=== PATIENT | female | born 1970 | race Two or more races ===

== ENCOUNTER 2024-05-21 11:46 | Inpatient (IN) | payer MEDICAID, SELFPAY ==
[2024-05-21] VITALS (14 sets, daily range): BP systolic 100–139; BP diastolic 55–79; PULSE 99–123; RESP 18–97; TEMP 36.4–37.6; O2SAT 94–98; BMI 29.2
--- NOTE | 2024-05-21 11:48 | EKG_ITS ---
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
--- NOTE | 2024-05-21 11:48 | XR_ITS ---
Examination: AP chest single view Technique one AP portable upright chest single view Exam date and time: May 21, 2024 1254 hours INDICATIONS: Shortness of breath dyspnea vomiting nausea today, diabetes history FINDINGS: Poor inspiratory effort Mild prominence of ventricle No pneumonia or pulmonary edema IMPRESSION: Poor inspiratory effort chest x-ray
--- NOTE | 2024-05-21 11:53 | PD.EDADULT ---
ED General RME/HPI General Chief complaint: Shortness of Breath/Dyspnea Stated complaint: POSS DKA Time Seen by Provider: 05/21/24 11:47 Arrival date/time: 05/21/24 11:46 CC: Nausea vomiting chills and a high blood sugar HPI patient presents the ER via EMS report tachycardia tachypnea and a high blood sugar. Patient has a history of diabetes last known DKA was in 2021. Patient is actively vomiting at the time of the initial exam. Patient denies chest pain but is complaining of shortness of breath. Related Data Home Medications ?Medication ?Instructions ?Recorded ?Confirmed atorvastatin 10 mg tablet 10 mg PO QDAY 05/04/19 05/04/19 ferrous sulfate 325 mg (65 mg 325 mg PO HS 05/04/19 05/04/19 iron) tablet (iron) metformin 1,000 mg tablet 1,000 mg PO BID 05/04/19 05/04/19 Previous Rx's ?Medication ?Instructions ?Recorded insulin glargine 100 unit/mL (3 30 unit (0.3 mL) subcut HS #3 mL 08/16/21 mL) subcutaneous pen (Lantus Solostar U-100 Insulin) Allergies Allergy/AdvReac Type Severity Reaction Status Date / Time No Known Allergies Allergy Verified 06/03/22 17:33 Review of Systems Review of Systems Narrative Review of Systems: GEN: No fever, no chills, no weight loss EYES: No discharge, no visual changes, no pain HEENT: No ear pain, no congestion, no sore throat PULM: No shortness of breath, no cough, no congestion CV: No chest pain, no dyspnea on exertion, no palpitations GI: + nausea, +vomiting, no diarrhea, no pain, no constipation : No frequency, no urgency, no dysuria MUSC/SKEL: No joint pain, no back pain SKIN: No rash PSYCH: No hallucinations, no depression HEME/LYMPH: No easy bleeding or bruising tendencies NEURO: No weakness, no headache Past Medical History Past Medical History NEUROLOGIC: Negative Neurological Disorders CARDIAC: Positive Hypercholesterolemia and Hypertension; Negative Cardiac Disorders or Congestive Heart Failure RESPIRATORY: Negative Chronic Obstructive Pulmonary Disease (COPD) or Asthma GASTROINTESTINAL: Negative Gastrointestinal Disorders GENITOURINARY: Negative Genitourinary Disorders or Renal Disease REPRODUCTIVE: Positive Previous Pregnancies; Negative Pelvic Inflammatory Disease MUSCULOSKELETAL: Negative Musculoskeletal Disorders ENDOCRINE: Positive Endocrine Disorders and Diabetes Mellitus Type 2; Negative Diabetes Mellitus Type 1 HEMATOLOGIC: Positive Blood Disorders and Anemia; Negative Sickle Cell Disease OTHER HISTORY: Positive Falls; Negative Hospitalization, Autoimmune Disease, Down Syndrome, Developmental Delay, Blood Transfusions, Blood Transfusion Reaction, Anesthesia Reactions, Chicken Pox, Measles, Mumps, Clostridium Difficile or Cancer Family History FAMILY HISTORY: Negative Family Psychiatric Problems, Family Respiratory Disorders, Family Cardiac Disorders, Family Gastrointestinal Problems, Family Cancer, Family Surgery or Family Anesthesia Reaction Surgical History SURGICAL: Negative Ear Surgery or Joint Replacement Social History SMOKING STATUS: Never smoker SECOND HAND EXPOSURE: No SUBSTANCE USE: does not use ED Exam Narrative Physical exam: [General: Obese, in moderate discomfort not in any acute distress, active vomiting Head normocephalic HEENT: Within acceptable limits Neck is supple nontender Chest equal chest rise nontender to palpation Respiratory: Clear to auscultation no wheezes crackles or rubs CV: Rate rhythm is regular no murmurs rubs or clicks Abdomen is distended secondary to body habitus soft nontender no masses positive bowel sounds all 4 quadrants Back: No CVA tenderness no spinous process tenderness from cervical spine thoracic and lumbar spine Skin: Intact no petechiae rash induration ulceration or crepitus Extremities: Moving all extremity against resistance cap refill less than 2 seconds neurosensory intact Neuro: Awake alert oriented x2, person and place, Glascow coma 15 no focal deficits] Course Orders Category Date Time Status EKG (ED ONLY) *Do not use* NOW Care 05/21/24 11:48 Completed Saline [Insert IV] NOW Care 05/21/24 11:48 Active EKG (ED Only) Stat Exams 05/21/24 11:48 Draft XR chest 1V Stat Exams 05/21/24 11:48 Ordered ABG [Arterial Blood Gas] Stat Lab 05/21/24 12:04 Completed B-Type Natriuretic Peptide Stat Lab 05/21/24 11:55 Completed Beta Hydroxybutyrate Stat Lab 05/21/24 11:55 Completed CBC Stat Lab 05/21/24 11:55 Completed Comprehensive Metabolic Panel Stat Lab 05/21/24 11:55 Completed Drug Screen,Urine Stat Lab 05/21/24 11:48 Ordered LDH (Lactate Dehydrogenase) Stat Lab 05/21/24 11:55 Completed Lipase Stat Lab 05/21/24 12:41 Ordered Magnesium Stat Lab 05/21/24 11:55 Completed Partial Thromboplastin Time Stat Lab 05/21/24 11:55 Completed Prothrombin Time with INR Stat Lab 05/21/24 11:55 Completed Troponin I Stat Lab 05/21/24 11:55 Completed Troponin I Stat Lab 05/21/24 12:41 Ordered Urinalysis Stat Lab 05/21/24 11:48 Ordered Insulin Reg 100 Units/100 ml [Myxredlin] Med 05/21/24 12:36 Active 100 unit in 100 ml IV 0.1 unit/kg/hr Sodium Chloride 0.9% 1000 ml [Ns] 1,000 ml Med 05/21/24 11:50 Active IV 999 mls/hr Sodium Chloride 0.9% 1000 ml [Ns] 1,000 ml Med 05/21/24 11:50 Active IV 999 mls/hr Vital Signs Vital signs: Vital Signs Temperature 98.3 F 05/21/24 11:52 Pulse Rate 123 H 05/21/24 11:52 Respiratory Rate 18 05/21/24 11:52 Blood Pressure 139/74 H 05/21/24 11:52 Pulse Oximetry (%) 97 05/21/24 11:52 Oxygen Delivery Method Room Air 05/21/24 11:52 [facility] Patient data External records reviewed:: [facility] previous records and EMS form Clinical information provided by:: patient and EMS Social determinants that could affect healthcare access:: none Patient has the following chronic illnesses:: Diabetes hyperlipidemia hypertension How is presenting disease/condition affected by chronic disease/condition?: exacerbated by Evaluation data The following diagnostics were reviewed and interpreted by me:: lab results, radiology exam(s) and EKG tracing(s) Lab and/or radiology exams considered but not ordered:: EKG performed at 1240 shows a ventricular rate of 119 DC interval 180 QRS of 9 4 QTc of 396 is sinus tachycardia. CBC shows a leukocytosis of 14.7 no anemia no thrombocytopenia CMP shows a sodium of 129 no pseudohyponatremia potassium of 5.6 chloride of 94 CO2 is less than 10 gap of 25 BUN of 33 creatinine 1.5 glucose of 658. No T. bili elevation magnesium of 2.2. Alk phos 122 LDH 251 Troponin is negative BNP is negative. ABG shows a pH of 7.12 pCO2 of 29 pO2 of 94 bicarb of 9 base deficit of 19 Beta hydroxybutyrate of 4.9 Interpretation Summary: This patient is in DKA, talked patient's case discussed with Dr. Cary, who agrees to accept the patient for admission. Medications Medications considered but not ordered:: None Medication administrations:: Medication Administration History Sodium Chloride (Ns) 1,000 mls @ 999 mls/hr IV .Q1H1M ONE Stop: 05/21/24 12:50 Last Admin: 05/21/24 12:46 Dose: 999 mls/hr Documented By: OLMAN Sodium Chloride (Ns) 1,000 mls @ 999 mls/hr IV .Q1H1M ONE Stop: 05/21/24 12:50 Last Admin: 05/21/24 12:46 Dose: 999 mls/hr Documented By: OLMAN Insulin Human Regular (Myxredlin) 100 unit in 100 mls @ 7.258 mls/hr IV .[id number] PRN; Protocol PRN Reason: PER PROTOCOL Stop: 06/20/24 12:35 None Consultations Consultation(s) initiated? (list below): No Diagnosis Differential Diagnosis ED Complaint MDM: DKA hyperglycemia nausea vomiting dehydration Most likely diagnosis given after review of the tests above:: DKA Admission Indicated Explain why admission is indicated or not indicated:: Requires further medical management Admission Request Was there a request for admission?: No Disposition Plan Disposition Plan: Admit Medical Decision Making Differential Diagnosis Differential Diagnosis: DKA hyperglycemia nausea vomiting dehydration Lab Data 05/21/24 11:55 05/21/24 11:55 Labs: Lab Results 05/21/24 05/21/24 Range/Units 11:55 12:04 WBC 14.7 H (3.6-11.0) Thou/mm3 RBC 4.66 (4.00-5.20) Miln/mm3 Hgb 12.9 (12.0-16.0) g/dL Hct 40.3 (36.0-46.0) % MCV 87 (80-100) fL MCH 27.7 (25.0-35.0) pg MCHC 32.0 (31.0-37.0) g/dl RDW Std Deviation 40.3 (36.4-46.3) fL Plt Count 311 (140-440) Thou/mm3 Neut % (Auto) 94 H (37-80) % Lymph % (Auto) 5 L (10-50) % [place] % (Auto) 1 (0-12) % Eos % (Auto) 0 (0-10) % Baso % (Auto) 0 (0-2.5) % Neut # (Auto) 13.8 H (1.8-7.7) Thou/mm3 Lymph # (Auto) 0.7 L (1.0-4.8) Thou/mm3 [place] # (Auto) 0.1 (0.0-0.8) Thou/mm3 Eos # (Auto) 0.0 (0.0-0.5) Thou/mm3 Baso # (Auto) 0.0 (0.0-0.2) Thou/mm3 Immature Gran # (Auto) 0.09 H (0.00-0.00) Thou/mm3 Absolute Nucleated RBC 0.00 (0.00-0.00) Thou/mm3 Immature Gran % 1 H (0-0) % Nucleated RBC % 0 (0) /100 WBC PT 11.1 (9.0-12.2) Seconds INR 1.0 (0.9-1.3) APTT 26.5 (22.0-36.0) Seconds Puncture Site Right Radial ABG pH 7.12 L* (7.35-7.45) ABG pCO2 29 L (32.0-48.0) mmHg ABG pO2 94 (83-108) mmHg ABG HCO3 9 L* (20-26) mEq/L ABG O2 Saturation 96 (91-98) % ABG Base Excess -19 L (-3-3) FiO2 21 % Sodium 129 L (136-145) mMol/L Potassium 5.6 H (3.4-5.1) mMol/L Chloride 94 L (98-107) mMol/L Carbon Dioxide < 10.0 L* (20.0-31.0) mMol/L Anion Gap 25 H (7-16) BUN 33 H (9-23) mg/dL Creatinine 1.5 H (0.6-1.3) mg/dL Estim Creat Clear Calc 41.4 L (>60) mL/min eGFR 42 L (60 - ) See Note BUN/Creatinine Ratio 22 H (12-20) Ratio Glucose 658 H* (74-106) mg/dL Calculated Osmolality 297 H (275-295) Calcium 10.0 (8.3-10.6) mg/dL Corrected Calcium 10.0 (8.5-10.1) mg/dL Magnesium 2.2 (1.6-2.6) mg/dL Total Bilirubin 0.5 (0.3-1.2) mg/dL AST 13 (0-34) U/L ALT 23 (10-49) U/L Alkaline Phosphatase 122 H (46-116) U/L Lactate Dehydrogenase 251 H (120-246) U/L Troponin I < 0.020 (0.0-0.045) ng/mL B-Natriuretic Peptide 97 (0-100) pg/mL Total Protein 7.5 (5.7-8.2) gm/dL Albumin 4.6 (3.5-5.0) gm/dL Globulin 2.9 (2.3-3.5) gm/dL Albumin/Globulin Ratio 1.6 (1.2-2.2) Beta-Hydroxybutyrate/Acetoacetate 4.9 H (<0.6) mmol/L Discharge Plan Plan Patient Disposition: Admit Acute Care w/in Hospital Patient condition on transfer: Stable Prescriptions/Referrals Prescriptions/Med Rec: No Action atorvastatin 10 mg Tablet 10 mg PO QDAY ferrous sulfate [iron] 325 mg (65 mg iron) Tablet 325 mg PO HS metformin 1,000 mg Tablet 1,000 mg PO BID Lantus Solostar U-100 Insulin 100 unit/mL (3 mL) Insulin Pen 30 unit SUBCUT HS Qty: 3 0RF Problem List Clinical Impression: DKA (diabetic ketoacidoses) Patient/Caregiver Discharge Instructions Print Language: English Stand Alone Forms: Michelle Award Info., Patient Portal Info Letter CHDAD/MINDI Supervising Physician CHADD/MINDI Supervising Physician: Edilberto Lin ENP
[2024-05-21 12:08] LABS: Base Excess -19 (-3-3); HCO3 9 mEq/L (20-26); Inspired Oxygen, FIO2 21 %; O2 Saturation 96 % (91-98); PCO2 29 mmHg (32.0-48.0); PO2 94 mmHg (83-108)
[2024-05-21 12:10] LABS: Beta Hydroxybutyrate 4.9 mmol/L (<0.6)
[2024-05-21 12:12] LABS: Allen Test Not Performed; Puncture Site Right Radial
[2024-05-21 12:14] LABS: Basophils % (Auto) 0 % (0-2.5); Eosinophils % (Auto) 0 % (0-10); Hematocrit 40.3 % (36.0-46.0); Hemoglobin 12.9 g/dL (12.0-16.0); Immature Granulocytes % (Auto) 1 % (0-0); Immature Granulocytes Auto 0.09 Thou/mm3 (0.00-0.00); Lymphocytes # (Auto) 0.7 Thou/mm3 (1.0-4.8); Lymphocytes % (Auto) 5 % (10-50); Mean Corpuscular Hemoglobin 27.7 pg (25.0-35.0); Mean Corpuscular Volume 87 fL (80-100); Monocytes # (Auto) 0.1 Thou/mm3 (0.0-0.8); Monocytes % (Auto) 1 % (0-12); Neutrophils # (Auto) 13.8 Thou/mm3 (1.8-7.7); Neutrophils % (Auto) 94 % (37-80); Nucleated Red Blood Cell % 0 /100 WBC (0); Platelet Count 311 Thou/mm3 (140-440); RDW Standard Deviation 40.3 fL (36.4-46.3); Red Blood Count 4.66 Miln/mm3 (4.00-5.20); White Blood Count 14.7 Thou/mm3 (3.6-11.0)
[2024-05-21 12:15] LABS: pH, Arterial 7.12 (7.35-7.45)
[2024-05-21 12:25] LABS: Partial Thromboplastin Time 26.5 Seconds (22.0-36.0); Prothrombin Time 11.1 Seconds (9.0-12.2)
[2024-05-21 12:36] LABS: Alanine Aminotransferase 23 U/L (10-49); Albumin, Serum 4.6 gm/dL (3.5-5.0); Albumin/Globulin Ratio 1.6 (1.2-2.2); Alkaline Phosphatase 122 U/L (46-116); Anion Gap 25 (7-16); Aspartate Amino Transferase 13 U/L (0-34); BUN/Creatinine Ratio 22 Ratio (12-20); Bilirubin,Total 0.5 mg/dL (0.3-1.2); Blood Urea Nitrogen 33 mg/dL (9-23); Chloride 94 mMol/L (98-107); Creatinine (Component) 1.5 mg/dL (0.6-1.3); Estimated Creatinine Clearance 41.4 mL/min (>60); Globulin 2.9 gm/dL (2.3-3.5); LDH (Lactate Dehydrogenase) 251 U/L (120-246); Magnesium 2.2 mg/dL (1.6-2.6); Osmolality,Calculated 297 (275-295); Potassium 5.6 mMol/L (3.4-5.1); Sodium 129 mMol/L (136-145); Total Protein 7.5 gm/dL (5.7-8.2); Troponin I < 0.020 ng/mL (0.0-0.045); eGFR 42 See Note
[2024-05-21 12:37] LABS: Carbon Dioxide < 10.0 mMol/L (20.0-31.0); Glucose 658 mg/dL (74-106)
[2024-05-21 12:45] LABS: B-Type Natriuretic Peptide 97 pg/mL (0-100)
[2024-05-21] MEDS: SODIUM CHLORIDE 0.9% 1000 ML 1,000 ML 999 ML IV ×2 (12:46)
[2024-05-21] MEDS: INSULIN REG 100 UNITS/100 ML 100 UNIT/100 ML BAG 7.258 UNIT IV (13:09)
[2024-05-21 13:26] LABS: Lipase 20 U/L (12-53); Troponin I < 0.020 ng/mL (0.0-0.045)
--- NOTE | 2024-05-21 13:37 | ESHP_ITS ---
<Statement entered by Enma Cary MD - 05/22/24 08:02> TOTAL CC TIME: 45 MIN I saw and evaluated the patient. I reviewed the resident?s note and agree with findings and plan as documented in the resident?s note. Upon my evaluation, this patient had a high probability of imminent or life- threatening deterioration due to DKA, AMADA which required my direct attention, intervention, and personal management. This time is exclusive of time spent on procedures, which are documented separately if performed. severe DKA no indication for hco3 pushes aggressive IVFs / insulin gtt replace E-lytes appropriately AMADA pre-renal Documentation for date of: 05/21/24 HPI History of Present Illness History of present illness: Tamiko Simms is a 53-year-old female with a past medical history of insulin- dependent type 2 diabetes mellitus on insulin pump and CGM, hyperlipidemia, and hypertension who presented to the ED on 05/21 with shortness of breath, nausea, vomiting, abdominal pain, and urinary frequency. Denies chest pain, dysuria, hematuria, fever, cough, diarrhea. Daughter at bedside who helped translate and provide additional history and states that CGM was reading high for the last couple of days and that states that pump was functioning. Daughter states that recent labs done outpatient showed A1c ~7%. Of note, most recent episode of DKA was in November 2023 and was admitted at [facility] and has since been on CGM and insulin pump. In ED, vitals showed BP 139/74, HR 123, temp 98.3 ?F, RR, O2 97% on RA 18. Labs significant for WBC 14.7, ABG: pH 7.12, pCO2 29, pO2 94, blood glucose 658 (fingerstick 999), beta hydroxybutyrate 4.9, A1c 7.4%, lactic acid 3.6, sodium 129, potassium 5.6, chloride 94, bicarb less than 10, AG 25, BUN 33, creatinine 1.5. EKG showed sinus tachycardia without significant ST changes. Admitted to ICU for management of DKA/HHS. PMHx: Insulin-dependent type 2 diabetes mellitus, hyperlipidemia, hypertension Medications: Gabapentin 300 mg twice daily, metformin 1 g twice daily, lisinopril 30 mg daily, Lipitor 20 mg at bedtime SHx: Denies alcohol, cigarette, illicit drug use PSHx: No previous surgeries per daughter Review of Systems Review of Systems Systems Reviewed: All systems reviewed, normal except as documented Exam Vital Signs Temp Pulse Resp BP Pulse Ox O2 Del Method 98.3 F 123 H 18 139/74 H 97 Room Air 05/21/24 11:52 05/21/24 11:52 05/21/24 11:52 05/21/24 11:52 05/21/24 11:52 05/21/24 11:52 Narrative Exam General: AOx3, in mild distress, able to speak full sentences HEENT: NC/AT, mucous membranes moist, bilateral sclera anicteric Cardiovascular: tachyardic, regular rhythm, S1/S2 present, no murmurs appreciated Pulmonary: clear to auscultation bilaterally, no rales/rhonchi/wheezes Abdominal: diffusely tender to soft palpation, soft, non-distended, no rebound/guarding Musculoskeletal: normal ROM, no peripheral edema Skin: warm and dry, intact, no rashes Neuro: CN II-XII intact, no focal deficits Results: Labs 05/21/24 11:55 05/21/24 21:03 Labs: Short CBC 05/21/24 Range/Units 11:55 WBC 14.7 H (3.6-11.0) Thou/mm3 Hgb 12.9 (12.0-16.0) g/dL Hct 40.3 (36.0-46.0) % Plt Count 311 (140-440) Thou/mm3 BMP 05/21/24 11:55 Sodium 129 L Potassium 5.6 H Chloride 94 L Carbon Dioxide < 10.0 L* BUN 33 H Creatinine 1.5 H Glucose 658 H* Calcium 10.0 Cardiac Enzymes 05/21/24 05/21/24 Range/Units 11:55 13:00 Troponin I < 0.020 < 0.020 (0.0-0.045) ng/mL Liver Function 05/21/24 Range/Units 11:55 Total Bilirubin 0.5 (0.3-1.2) mg/dL AST 13 (0-34) U/L ALT 23 (10-49) U/L Alkaline Phosphatase 122 H (46-116) U/L Albumin 4.6 (3.5-5.0) gm/dL ABG Interpretation ABG results: 05/21/24 12:04 ABG pH 7.12 L* ABG pCO2 29 L ABG pO2 94 ABG HCO3 9 L* ABG O2 Saturation 96 ABG Base Excess -19 L Quality Measures Quality Measures VTE prophylaxis Medications Home Medications and Allergies Home Medications ?Medication ?Instructions ?Recorded ?Confirmed ?Type atorvastatin 10 mg tablet 10 mg PO QDAY 05/04/1905/21 History ferrous sulfate 325 mg (65 mg 325 mg PO HS 05/04/19 History iron) tablet (iron) metformin 1,000 mg tablet 1,000 mg PO BID 05/04/19 History gabapentin 300 mg capsule 300 mg PO BID 05/21/2405/21 History insulin pump cart,auto,BT,G6/7 05/21/24 05/21/24 Hist ory (Omnipod 5 G6-G7 Pods (Gen 5) subcutaneous cartridge) Allergies Allergy/AdvReac Type Severity Reaction Status Date / Time No Known Allergies Allergy Verified 06/03/22 17:33 Visit Medications Acetaminophen (Acetaminophen 325 Mg Tablet) 650 mg PO Q4HR PRN PRN Reason: Pain 1-3 and Fever Stop: 06/20/24 13:24 Al Hydrox/Mg Hydrox/Simethicone (Mg Hyd/Al Hyd/Herberht (Maalox Reg) Susp 30 Ml Udc) 30 ml PO Q4HR PRN PRN Reason: Heartburn or Upset Stomach Stop: 06/20/24 13:24 Heparin Sodium (Porcine) (Heparin Sod Inj 5000 Unit/Ml Vial) 5,000 unit SC Q12HR [facility] Stop: 06/04/24 20:59 Insulin Human Regular (Myxredlin) 100 unit in 100 mls @ 7.258 mls/hr IV .[id number] PRN; Protocol PRN Reason: PER PROTOCOL Stop: 06/20/24 12:35 Last Admin: 05/21/24 13:09 Dose: 0.1 unit/kg/hr, 7.258 mls/hr Potassium Chloride (Kcl Ivpb) 10 meq in 100 mls @ 100 mls/hr IV .Q1H PRN PRN Reason: IF POTASSIUM LESS THAN 3.3 Stop: 06/20/24 13:29 Magnesium Sulfate (Magnesium Sulfate Ivpb) 2 gm in 50 mls @ 25 mls/hr IV .Q2H PRN PRN Reason: PER DKA PROTOCOL Stop: 06/20/24 13:29 Dextrose/Lactated Ringer's (D5-Lr) 1,000 mls @ 250 mls/hr IV .Q4H PRN PRN Reason: PER PROTOCOL Stop: 06/20/24 13:29 Lactated Ringer's (Lactated Ringers) 1,000 mls @ 250 mls/hr IV .Q4H PRN PRN Reason: PER PROTOCOL Stop: 05/22/24 13:29 Potassium Chloride 20 meq/ (Lactated Ringer's) 1,010 mls @ 250 mls/hr IV .Q4H3M PRN PRN Reason: K LEVEL 3.3 TO 5.3mM/L Stop: 06/20/24 13:29 Potassium Chloride 40 meq/ (Lactated Ringer's) 1,020 mls @ 250 mls/hr IV .Q4H5M PRN PRN Reason: K LEVEL < 3.3 mM/L Stop: 06/20/24 13:29 Potassium Chloride 40 meq/ (Dextrose/Lactated Ringer's) 1,020 mls @ 250 mls/hr IV .Q4H5M PRN PRN Reason: K LEVEL < 3.3mM/L Stop: 06/20/24 13:29 Potassium Cl/Dextrose/Lact Ringer's (Kcl 20 Meq/L In D5-Lr) 20 meq in 1,000 mls @ 250 mls/hr IV .Q4H PRN PRN Reason: K LEVEL 3.3 TO 5.3 mM/L Stop: 06/20/24 13:29 Potassium Chloride (Kcl Ivpb) 10 meq in 100 mls @ 50 mls/hr IV PRN PRN PRN Reason: K LEVEL 3.3 to 5.3 & BG > 200 Stop: 06/20/24 13:29 Magnesium Hydroxide (Milk Of Magnesia Susp 30 Ml Udc) 30 ml PO QDAY PRN PRN Reason: CONSTIPATION Stop: 06/20/24 13:24 Nitroglycerin (Nitroglycerin 0.4 Mg Subl Btl #25) 0.4 mg SL Q5MIN PRN PRN Reason: CHEST PAIN Pantoprazole Sodium (Pantoprazole Inj 40 Mg Vial) 40 mg IVP QDAY OBEY Stop: 06/20/24 13:29 Sodium Bicarbonate (Sodium Bicarb Inj 8.4% Syr 50 Ml Syringe) 50 ml IV PRN PRN PRN Reason: For ph <= to 7.0 Stop: 06/20/24 13:29 Discontinued Medications Sodium Chloride (Ns) 1,000 mls @ 999 mls/hr IV .Q1H1M ONE Stop: 05/21/24 12:50 Last Admin: 05/21/24 12:46 Dose: 999 mls/hr Sodium Chloride (Ns) 1,000 mls @ 999 mls/hr IV .Q1H1M ONE Stop: 05/21/24 12:50 Last Admin: 05/21/24 12:46 Dose: 999 mls/hr Ondansetron HCl (Ondansetron Inj 2 Mg/Ml Inj 2 Ml) 4 mg IV X1 ONE; Protocol Stop: 05/21/24 13:12 Assessment & Plan Plan Tmaiko Simms is a 53-year-old female with a past medical history of insulin- dependent type 2 diabetes mellitus on insulin pump and CGM, hyperlipidemia, and hypertension who is admitted on 05/21 to ICU for management of DKA/HHS. Neurological No acute/active disease Cardiovascular #Hyperlipidemia ? Home atorvastatin 10 mg p.o. daily Pulmonary No acute/active disease Gastrointestinal No acute/active disease Renal #Anion gap metabolic acidosis, secondary to DKA and lactic acidosis, improving Iniital labs showed ABG pH 7.12, pCO2 29, pO2 94, HCO3 < 10, anion gap 25, beta hydroxybutyrate 4.9, lactate 3.6. Alvares formula: expected pCO2 21-25, thus concomitant respiratory acidosis. Delta-delta: 13/14 = 0.92, suggesting pure AGMA Most recent ABG pH 7.39, pCO2 34, and pO2 92, HCO3 21, anion gap 10, lactate 1.5. ? See endocrine below #Pseudohyponatremia, resolved Measured sodium 129, corrected for hyperglycemia -> 143 #Hyperkalemia, resolved Potassium 5.6 bu resolved t likely total body potassium low given urinary frequency and RAAS activation in setting of low intravascular volume ? Insulin and IVF #Acute kidney injury, likely prerenal BUN/creatinine ratio greater than 22, suggesting prerenal AMADA in setting of urinary frequency ? IVF Heme/onc #Leukocytosis, likey reactive in setting of DKA Endocine #Diabetic ketoacidosis #Type 2 diabetes mellitus, insulin-dependent on CGM and insulin pump Presented with abdominal pain, nausea, vomiting, and urinary frequency in setting of DKA. A1c 7.4%, initial fingerstick of 999 and beta hydroxybutyrate of 4.9. Transition to subcutaneous insulin after anion gap closes with 1 to 2-hour overlap with insulin drip. Transition to D5-LR if blood sugar drops below 200. ? Continue insulin drip and maintain blood sugar 150-200 until resolution of DKA ? IVF, lactated ringer at 250 cc/h ? Monitor electrolytes and replete as needed Infectious disease No acute/active disease Hospital management: Disposition: ICU for management of DKA Drips: insulin per DKA protocol Fluids: LR Diet: NPO Lines: peripheral DVT prophylaxis: heparin SC BID GI prophylaxis: pantoprazole IV Kiran: not placed CODE STATUS: full code ----- Plan discussed with attending physician Dr. Luis Daniel Duke MD PGY-1 Internal Medicine
[2024-05-21 14:18] LABS: Lactate (Lactic Acid) 3.6 mMol/L (0.4-2.0)
[2024-05-21 14:21] LABS: Allen Test Not Performed; Base Excess -21 (-3-3); HCO3 8 mEq/L (20-26); Inspired Oxygen, FIO2 21 %; O2 Saturation 95 % (91-98); PCO2 25 mmHg (32.0-48.0); PO2 92 mmHg (83-108); Puncture Site Left Radial
[2024-05-21 14:23] LABS: pH, Arterial 7.09 (7.35-7.45)
[2024-05-21] MEDS: PANTOPRAZOLE INJ 40 MG VIAL IVP (14:25)
[2024-05-21 14:30] LABS: Glucose Estimated Average 166 mg/dL (80-131); Hemoglobin A1C 7.4 % Hgb (4.8-6.0)
--- NOTE | 2024-05-21 14:38 | PC.NURSE ---
SPOKE WITH DR. SANTAMARIA VIA TELEPHONE REGARDING PATIENT'S PAIN LEVEL OF 10/10, DR. SANTAMARIA STATES HE WILL PLACE MEDICATION ORDER.
[2024-05-21] MEDS: LIDOCAINE 5% 1 PATCH TOP (15:10)
[2024-05-21] MEDS: RINGERS LACTATED 1000 ML 1,000 ML 250 ML IV (15:13)
[2024-05-21] MEDS: ONDANSETRON INJ 2 MG/ML INJ 2 ML 4 MG IV (15:15)
[2024-05-21 16:22] LABS: Lactate (Lactic Acid) 2.8 mMol/L (0.4-2.0)
[2024-05-21 16:43] LABS: Base Excess -15 (-3-3); HCO3 12 mEq/L (20-26); Inspired Oxygen, FIO2 21 %; O2 Saturation 96 % (91-98); PCO2 29 mmHg (32.0-48.0); PO2 80 mmHg (83-108); pH, Arterial 7.22 (7.35-7.45)
[2024-05-21 16:48] LABS: Allen Test Not Performed; Puncture Site Right Radial
[2024-05-21 16:50] LABS: Albumin, Serum 3.9 gm/dL (3.5-5.0); Anion Gap 21 (7-16); BUN/Creatinine Ratio 28 Ratio (12-20); Blood Urea Nitrogen 36 mg/dL (9-23); Calcium 8.8 mg/dL (8.3-10.6); Calcium (Corrected) 8.9 mg/dL (8.5-10.1); Chloride 103 mMol/L (98-107); Creatinine (Component) 1.3 mg/dL (0.6-1.3); Estimated Creatinine Clearance 47.8 mL/min (>60); Magnesium 1.8 mg/dL (1.6-2.6); Osmolality,Calculated 299 (275-295); Phosphorous 4.4 mg/dL (2.4-5.1); Potassium 4.5 mMol/L (3.4-5.1); Sodium 136 mMol/L (136-145); eGFR 50 See Note
[2024-05-21 16:51] LABS: Carbon Dioxide 11.8 mMol/L (20.0-31.0)
[2024-05-21 16:52] LABS: Glucose 449 mg/dL (74-106)
[2024-05-21 17:17] LABS: Reflex Lactate? Y
[2024-05-21 19:04] LABS: Collection Type, Urine Clean Catch; Squamous Epithelial Cell,Urine 0 /hpf (0-5)
[2024-05-21 19:17] LABS: Reflex Lactate? Y
[2024-05-21] MEDS: POT CHL ADDITIVE 20 MEQ in RINGERS LACTATED 1000 ML 1,000 ML 250 MEQ IV (19:24)
[2024-05-21 19:31] LABS: Bilirubin,Urine Negative (Negative); Blood,Urine 3+ (Negative); Budding Yeast,Urine Present; Color,Urine Red (Lt Yel-Yel); Glucose, Urine Negative (Negative); Ketones,Urine 1+ (Negative); Leukocyte Esterase,Urine Positive (Negative); Nitrite,Urine Negative (Negative); Protein,Urine 2+ (Neg - Trace); RBC,Urine 7092 /hpf (0-3); Specific Gravity,Urine 1.014 (1.001-1.035); Urobilinogen,Urine Negative mg/dL (0.0-1.0); WBC,Urine 863 /hpf (0-5)
[2024-05-21 19:34] LABS: Clarity,Urine Turbid (Clear/Hazy)
[2024-05-21 19:42] LABS: Amphetamine/Methamp Scrn,U Negative (Negative); Barbiturate Screen,Urine Negative (Negative); Benzodiazepines Screen,Urine Negative (Negative); Benzoylecgonine Screen, Ur Negative (Negative); Fentanyl Screen,Urine Negative (Negative); Opiate Screen,Urine Negative (Negative); THC Screen,Urine Negative (Negative)
[2024-05-21] MEDS: KCL 20 mEq/L in D5-LR 20 MEQ/1,000 ML BAG 250 MEQ IV (21:08)
[2024-05-21] MEDS: HEPARIN SOD INJ 5000 UNIT/ML VIAL SC (21:09)
[2024-05-21 21:19] LABS: Lactate (Lactic Acid) 1.5 mMol/L (0.4-2.0)
[2024-05-21 21:23] LABS: Base Excess -4 (-3-3); HCO3 21 mEq/L (20-26); Inspired Oxygen, FIO2 21 %; O2 Saturation 99 % (91-98); PCO2 34 mmHg (32.0-48.0); PO2 92 mmHg (83-108); pH, Arterial 7.39 (7.35-7.45)
[2024-05-21 21:24] LABS: Allen Test Performed/OK; Puncture Site Right Radial
[2024-05-21 21:44] LABS: Albumin, Serum 4.1 gm/dL (3.5-5.0); Anion Gap 10 (7-16); BUN/Creatinine Ratio 31 Ratio (12-20); Blood Urea Nitrogen 37 mg/dL (9-23); Calcium 9.5 mg/dL (8.3-10.6); Calcium (Corrected) 9.5 mg/dL (8.5-10.1); Carbon Dioxide 21.8 mMol/L (20.0-31.0); Chloride 110 mMol/L (98-107); Creatinine (Component) 1.2 mg/dL (0.6-1.3); Estimated Creatinine Clearance 51.7 mL/min (>60); Glucose 188 mg/dL (74-106); Magnesium 1.8 mg/dL (1.6-2.6); Osmolality,Calculated 296 (275-295); Phosphorous 2.9 mg/dL (2.4-5.1); Potassium 4.8 mMol/L (3.4-5.1); Sodium 142 mMol/L (136-145); eGFR 55 See Note
[2024-05-22] VITALS (14 sets, daily range): BP systolic 97–144; BP diastolic 57–88; PULSE 83–103; RESP 1–97; TEMP 36.1–37.2; O2SAT 94–97; BMI 13.0; BMI 34.2
[2024-05-22 00:32] LABS: Base Excess -2 (-3-3); HCO3 23 mEq/L (20-26); Inspired O2, VO2 Liters 4 L/min; Inspired Oxygen, FIO2 21 %; O2 Saturation 96 % (91-98); PCO2 38 mmHg (32.0-48.0); PO2 70 mmHg (83-108); pH, Arterial 7.39 (7.35-7.45)
[2024-05-22 00:43] LABS: Allen Test Performed/OK; Puncture Site Right Radial
[2024-05-22 01:14] LABS: Lactate (Lactic Acid) 1.5 mMol/L (0.4-2.0)
[2024-05-22 01:35] LABS: Albumin, Serum 3.8 gm/dL (3.5-5.0); Anion Gap 8 (7-16); BUN/Creatinine Ratio 33 Ratio (12-20); Blood Urea Nitrogen 36 mg/dL (9-23); Calcium 9.1 mg/dL (8.3-10.6); Calcium (Corrected) 9.3 mg/dL (8.5-10.1); Carbon Dioxide 23.4 mMol/L (20.0-31.0); Chloride 112 mMol/L (98-107); Creatinine (Component) 1.1 mg/dL (0.6-1.3); Estimated Creatinine Clearance 56.4 mL/min (>60); Glucose 164 mg/dL (74-106); Magnesium 1.7 mg/dL (1.6-2.6); Osmolality,Calculated 297 (275-295); Phosphorous 2.4 mg/dL (2.4-5.1); Potassium 4.5 mMol/L (3.4-5.1); Sodium 143 mMol/L (136-145); eGFR > 60 See Note
[2024-05-22] MEDS: KCL 20 mEq/L in D5-LR 20 MEQ/1,000 ML BAG 250 MEQ IV (02:58)
[2024-05-22] MEDS: INSULIN GLARGINE (Lantus) 5 UNIT/0.05 ML (PER 5 UNITS) 20 UNIT SC ×2 (03:03→21:28)
--- NOTE | 2024-05-22 04:45 | PD.RESPRO ---
Documentation for date of: 05/22/24 Subjective Subjective Interval history: Patient seen and examined in ICU. Patient was admitted to hospital on 05/21/2024 for DKA, anion gap closed twice at about 3 AM earlier this morning. Patient was transitioned to subcutaneous insulin, received Lantus 20 units. Will be started on sliding scale insulin, will initiate p.o. feeding this a.m. Patient denies any nausea/vomiting or abdominal pain currently. Reports has been difficulty ambulating since the last 6 years, pending PT consult. Exam Vital Signs Temp Pulse Resp BP Pulse Ox O2 Del Method 99.0 F 92 25 H 97/57 L 97 Room Air 05/22/24 01:00 05/22/24 02:00 05/22/24 02:00 05/22/24 02:00 05/22/24 02:00 05/21/24 15:50 Narrative Exam Physical Exam General: Awake and in no acute distress. Conversational and non-toxic appearing. HEENT: Normocephalic, atraumatic, mucous membranes moist. Reports blurry vision, vision grossly intact. Heart: Regular rate and rhythm, no murmurs. Lungs: Clear to auscultation with no wheezing or crackles. Abdomen: Soft, nondistended, nontender, positive bowel sounds. ?No guarding or rebound tenderness. Neurologic: Alert and oriented x3, no gross neurological deficit, and patient able to move all 4 extremities. Extremities: No edema. Skin: No rash or ecchymoses. Objective Labs 05/21/24 11:55 05/22/24 01:04 Labs: Laboratory Results - last 24 hr 05/21/24 05/21/24 05/21/24 11:55 12:04 13:00 WBC 14.7 H RBC 4.66 Hgb 12.9 Hct 40.3 MCV 87 MCH 27.7 MCHC 32.0 RDW Std Deviation 40.3 Plt Count 311 Neut % (Auto) 94 H Lymph % (Auto) 5 L [place] % (Auto) 1 Eos % (Auto) 0 Baso % (Auto) 0 Neut # (Auto) 13.8 H Lymph # (Auto) 0.7 L [place] # (Auto) 0.1 Eos # (Auto) 0.0 Baso # (Auto) 0.0 Immature Gran # (Auto) 0.09 H Absolute Nucleated RBC 0.00 Immature Gran % 1 H Nucleated RBC % 0 PT 11.1 INR 1.0 APTT 26.5 Puncture Site Right Radial ABG pH 7.12 L* ABG pCO2 29 L ABG pO2 94 ABG HCO3 9 L* ABG O2 Saturation 96 ABG Base Excess -19 L Oxygen Liter Flow FiO2 21 Sodium 129 L Potassium 5.6 H Chloride 94 L Carbon Dioxide < 10.0 L* Anion Gap 25 H BUN 33 H Creatinine 1.5 H Estim Creat Clear Calc 41.4 L eGFR 42 L BUN/Creatinine Ratio 22 H Glucose 658 H* Estimated Ave Glu mg/dL Hemoglobin A1c Calculated Osmolality 297 H Lactic Acid Calcium 10.0 Corrected Calcium 10.0 Phosphorus Magnesium 2.2 Total Bilirubin 0.5 AST 13 ALT 23 Alkaline Phosphatase 122 H Lactate Dehydrogenase 251 H Troponin I < 0.020 < 0.020 B-Natriuretic Peptide 97 Total Protein 7.5 Albumin 4.6 Globulin 2.9 Albumin/Globulin Ratio 1.6 Lipase 20 Beta-Hydroxybutyrate/Acetoacetate 4.9 H Ur Collection Type Urine Color Urine Clarity Urine pH Ur Specific [place] Urine Protein Urine Glucose (UA) Urine Ketones Urine Blood Urine Nitrite Urine Bilirubin Urine Urobilinogen (Auto) Ur Leukocyte Esterase Urine RBC Urine WBC Ur Squamous Epith Cells Urine Bacteria Urine Yeast (Budding) Urine Opiates Screen Urine Fentanyl Screen Ur Barbiturates Screen U Amphetamin/Meth Scrn U Benzodiazepines Scrn U Cocaine Metab Screen U Marijuana (THC) Screen 05/21/24 05/21/24 05/21/24 14:12 14:14 16:12 WBC RBC Hgb Hct MCV MCH MCHC RDW Std Deviation Plt Count Neut % (Auto) Lymph % (Auto) [place] % (Auto) Eos % (Auto) Baso % (Auto) Neut # (Auto) Lymph # (Auto) [place] # (Auto) Eos # (Auto) Baso # (Auto) Immature Gran # (Auto) Absolute Nucleated RBC Immature Gran % Nucleated RBC % PT INR APTT Puncture Site Left Radial ABG pH 7.09 L* ABG pCO2 25 L ABG pO2 92 ABG HCO3 8 L* ABG O2 Saturation 95 ABG Base Excess -21 L Oxygen Liter Flow FiO2 21 Sodium 136 Potassium 4.5 D Chloride 103 Carbon Dioxide 11.8 L* Anion Gap 21 H BUN 36 H Creatinine 1.3 Estim Creat Clear Calc 47.8 L eGFR 50 L BUN/Creatinine Ratio 28 H Glucose 449 H* D Estimated Ave Glu mg/dL 166 H Hemoglobin A1c 7.4 H Calculated Osmolality 299 H Lactic Acid 3.6 H 2.8 H Calcium 8.8 Corrected Calcium 8.9 Phosphorus 4.4 Magnesium 1.8 Total Bilirubin AST ALT Alkaline Phosphatase Lactate Dehydrogenase Troponin I B-Natriuretic Peptide Total Protein Albumin 3.9 D Globulin Albumin/Globulin Ratio Lipase Beta-Hydroxybutyrate/Acetoacetate Ur Collection Type Urine Color Urine Clarity Urine pH Ur Specific [place] Urine Protein Urine Glucose (UA) Urine Ketones Urine Blood Urine Nitrite Urine Bilirubin Urine Urobilinogen (Auto) Ur Leukocyte Esterase Urine RBC Urine WBC Ur Squamous Epith Cells Urine Bacteria Urine Yeast (Budding) Urine Opiates Screen Urine Fentanyl Screen Ur Barbiturates Screen U Amphetamin/Meth Scrn U Benzodiazepines Scrn U Cocaine Metab Screen U Marijuana (THC) Screen 05/21/24 05/21/24 05/21/24 16:21 18:51 21:03 WBC RBC Hgb Hct MCV MCH MCHC RDW Std Deviation Plt Count Neut % (Auto) Lymph % (Auto) [place] % (Auto) Eos % (Auto) Baso % (Auto) Neut # (Auto) Lymph # (Auto) [place] # (Auto) Eos # (Auto) Baso # (Auto) Immature Gran # (Auto) Absolute Nucleated RBC Immature Gran % Nucleated RBC % PT INR APTT Puncture Site Right Radial ABG pH 7.22 L D ABG pCO2 29 L ABG pO2 80 L ABG HCO3 12 L ABG O2 Saturation 96 ABG Base Excess -15 L Oxygen Liter Flow FiO2 21 Sodium 142 Potassium 4.8 Chloride 110 H Carbon Dioxide 21.8 Anion Gap 10 BUN 37 H Creatinine 1.2 Estim Creat Clear Calc 51.7 L eGFR 55 L BUN/Creatinine Ratio 31 H Glucose [address] Glu mg/dL Hemoglobin A1c Calculated Osmolality 296 H Lactic Acid 1.5 Calcium 9.5 Corrected Calcium 9.5 Phosphorus 2.9 Magnesium 1.8 Total Bilirubin AST ALT Alkaline Phosphatase Lactate Dehydrogenase Troponin I B-Natriuretic Peptide Total Protein Albumin 4.1 Globulin Albumin/Globulin Ratio Lipase Beta-Hydroxybutyrate/Acetoacetate Ur Collection Type Clean Catch Urine Color Red A Urine Clarity Turbid A Urine pH 6.0 Ur Specific [place] 1.014 Urine Protein 2+ A Urine Glucose (UA) Negative Urine Ketones 1+ A Urine Blood 3+ A Urine Nitrite Negative Urine Bilirubin Negative Urine Urobilinogen (Auto) Negative Ur Leukocyte Esterase Positive Urine RBC 7092 H Urine WBC 863 H Ur Squamous Epith Cells 0 Urine Bacteria None Urine Yeast (Budding) Present A Urine Opiates Screen Negative Urine Fentanyl Screen Negative Ur Barbiturates Screen Negative U Amphetamin/Meth Scrn Negative U Benzodiazepines Scrn Negative U Cocaine Metab Screen Negative U Marijuana (THC) Screen Negative 05/21/24 05/22/24 05/22/24 21:09 00:25 01:04 WBC RBC Hgb Hct MCV MCH MCHC RDW Std Deviation Plt Count Neut % (Auto) Lymph % (Auto) [place] % (Auto) Eos % (Auto) Baso % (Auto) Neut # (Auto) Lymph # (Auto) [place] # (Auto) Eos # (Auto) Baso # (Auto) Immature Gran # (Auto) Absolute Nucleated RBC Immature Gran % Nucleated RBC % PT INR APTT Puncture Site Right Radial Right Radial ABG pH 7.39 D 7.39 ABG pCO2 34 38 ABG pO2 92 70 L D ABG HCO3 21 23 ABG O2 Saturation 99 H 96 ABG Base Excess -4 L -2 Oxygen Liter Flow 4 FiO2 21 21 Sodium 143 Potassium 4.5 Chloride 112 H Carbon Dioxide 23.4 Anion Gap 8 BUN 36 H Creatinine 1.1 Estim Creat Clear Calc 56.4 L eGFR > 60 BUN/Creatinine Ratio 33 H Glucose [address] Glu mg/dL Hemoglobin A1c Calculated Osmolality 297 H Lactic Acid 1.5 Calcium 9.1 Corrected Calcium 9.3 Phosphorus 2.4 Magnesium 1.7 Total Bilirubin AST ALT Alkaline Phosphatase Lactate Dehydrogenase Troponin I B-Natriuretic Peptide Total Protein Albumin 3.8 Globulin Albumin/Globulin Ratio Lipase Beta-Hydroxybutyrate/Acetoacetate Ur Collection Type Urine Color Urine Clarity Urine pH Ur Specific [place] Urine Protein Urine Glucose (UA) Urine Ketones Urine Blood Urine Nitrite Urine Bilirubin Urine Urobilinogen (Auto) Ur Leukocyte Esterase Urine RBC Urine WBC Ur Squamous Epith Cells Urine Bacteria Urine Yeast (Budding) Urine Opiates Screen Urine Fentanyl Screen Ur Barbiturates Screen U Amphetamin/Meth Scrn U Benzodiazepines Scrn U Cocaine Metab Screen U Marijuana (THC) Screen ABG Interpretation ABG results: 05/21/24 05/21/24 05/21/24 12:04 14:12 16:21 ABG pH 7.12 L* 7.09 L* 7.22 L D ABG pCO2 29 L 25 L 29 L ABG pO2 94 92 80 L ABG HCO3 9 L* 8 L* 12 L ABG O2 Saturation 96 95 96 ABG Base Excess -19 L -21 L -15 L 05/21/24 05/22/24 21:09 00:25 ABG pH 7.39 D 7.39 ABG pCO2 34 38 ABG pO2 92 70 L D ABG HCO3 21 23 ABG O2 Saturation 99 H 96 ABG Base Excess -4 L -2 Quality Measures Quality Measures VTE prophylaxis Assessment & Plan Assessment Current Active Medications: Generic Name Dose Route Start Last Admin Trade Name Freq PRN Reason Stop Dose Admin Acetaminophen 650 mg 05/21/24 13:25 Acetaminophen 325 Mg Tablet PO 06/20/24 13:24 Q4HR PRN Pain 1-3 and Fever Atorvastatin Calcium 10 mg 05/22/24 09:00 Atorvastatin Calcium 10 Mg Tablet PO 06/21/24 08:59 QDAY OBEY Dextrose 25 ml 05/22/24 04:21 Dextrose 50%-Water Inj 50 Ml Syringe IV 06/21/24 04:20 Q15MIN PRN BG 50-70 responsive npo pt Dextrose 50 ml 05/22/24 04:21 Dextrose 50%-Water Inj 50 Ml Syringe IV 06/21/24 04:20 Q15MIN PRN BG <50 OR BG <70 & pt unresponsive Ferrous Sulfate 325 mg 05/22/24 21:00 Ferrous Sulf 325 Mg Tablet PO 06/21/24 20:59 HS OBEY Gabapentin 300 mg 05/22/24 09:00 Gabapentin 300 Mg Capsule PO 06/21/24 08:59 BID OBEY Glucagon 1 mg 05/22/24 04:21 Glucagon Inj 1 Mg Vial IM Q15MIN PRN BG <70, and no IV access Heparin Sodium (Porcine) 5,000 unit 05/21/24 21:00 05/21/24 21:09 Heparin Sod Inj 5000 Unit/Ml Vial SC 06/04/24 20:59 5,000 unit Q12HR OBEY Administration Insulin Glargine 20 unit 05/22/24 02:15 05/22/24 03:03 Insulin Glargine (Lantus) 5 Unit/0.05 Ml (Per 5 Units) SC 06/21/24 02:14 20 unit HS OBEY Administration Insulin Human Lispro 0 unit 05/22/24 07:30 Insulin Lispro (Admelog) 1 Unit/0.01 Ml Unit SC 06/21/24 07:29 AC OBEY Protocol Plan Assessment and plan: Summary: Ms. Raines is a 53-year-old female with past medical history of hypertension and hyperlipidemia who was admitted to [facility] on 05/21/2024 for diabetic ketoacidosis. Patient's daughter assisting patient with insulin pump, unable to use insulin pump correctly leading to DKA. Patient's anion gap closed twice, was transition from insulin GTT to subcutaneous insulin and downgraded to hospitalist service for further management. #Type 2 diabetes mellitus, insulin-dependent, hemoglobin A1c 7.4 #High anion gap metabolic acidosis, resolved #Diabetic ketoacidosis, resolved #Diabetic neuropathy #Diabetic retinopathy Patient was recently discharged from [facility] on insulin pump and CGM, per patient's daughter on admission patient's CGM pump has been showing high readings, patient unable to use insulin pump correctly, leading to DKA. Patient admitted to ICU for further management, started on insulin gtt., gap has closed twice, patient transition to subcutaneous insulin. Patient transitioned at the rate of 0.05 units/kg/h to 0.025 unit/kg/h, calculated daily metabolic insulin dose at about 87-43.5 units per day. Patient started on 20 units Lantus daily and sliding scale insulin. Patient will initiate p.o. intake with breakfast today. Hemoglobin A1c 7.4 Patient reports difficulty ambulating for about the last 6 years, positive history of diabetic neuropathy, on gabapentin at home. Patient reports blurry vision, did report having eye surgery for diabetes, follows ophthalmology outpatient. Plan: -Initiate p.o. intake with breakfast -Follow a.m. labs, correct and replace electrolytes as needed -Sliding scale insulin AC, fingerstick blood glucose checks AC -Lantus 20 units subcutaneous daily -Sliding scale insulin -Resumed home dose gabapentin -Physical therapy referral -Dietitian referral, diabetic education. #Acute kidney injury, resolving Patient's BUN 33, creatinine 1.5, GFR 42 on presentation. At baseline patient's BUN 13, creatinine 0.6, GFR more than 60 per chart review in 2022. Plan: -Patient was given fluids per DKA protocol, improvement in renal panel noted -Follow renal panel -Renally dose medication -Avoid nephrotoxic agents #Hyperlipidemia #Hypertension Patient on atorvastatin 10 mg p.o. daily for hyperlipidemia, resumed Patient not on any antihypertensive per med rec, monitor blood pressure #Pseudohyponatremia #Hyperkalemia, resolved Correct and replace electrolytes as needed DVT prophylaxis: Heparin every 12 hours GI prophylaxis: Not indicated Diet: Carb consistent low Lines: Peripheral IV Code status: Full code Case discussed with Attending Dr. Velazquez. Dylon Beaver PGY1 Disclaimer: This note was dictated by speech recognition. Minor errors in upper inspector may be present due to voice recognition software.
[2024-05-22 05:07] LABS: Basophils % (Auto) 0 % (0-2.5); Eosinophils % (Auto) 0 % (0-10); Hematocrit 32.3 % (36.0-46.0); Hemoglobin 10.8 g/dL (12.0-16.0); Immature Granulocytes % (Auto) 0 % (0-0); Immature Granulocytes Auto 0.07 Thou/mm3 (0.00-0.00); Lymphocytes # (Auto) 2.1 Thou/mm3 (1.0-4.8); Lymphocytes % (Auto) 12 % (10-50); Mean Corpuscular HGB Conc 33.4 g/dl (31.0-37.0); Mean Corpuscular Hemoglobin 27.7 pg (25.0-35.0); Mean Corpuscular Volume 83 fL (80-100); Monocytes # (Auto) 1.4 Thou/mm3 (0.0-0.8); Monocytes % (Auto) 9 % (0-12); Neutrophils % (Auto) 78 % (37-80); Nucleated Red Blood Cell % 0 /100 WBC (0); Platelet Count 230 Thou/mm3 (140-440); RDW Standard Deviation 39.1 fL (36.4-46.3); White Blood Count 16.6 Thou/mm3 (3.6-11.0)
[2024-05-22 05:10] LABS: Beta Hydroxybutyrate 0.2 mmol/L (<0.6)
[2024-05-22 05:22] LABS: Albumin, Serum 3.6 gm/dL (3.5-5.0); Anion Gap 9 (7-16); BUN/Creatinine Ratio 35 Ratio (12-20); Blood Urea Nitrogen 35 mg/dL (9-23); Calcium 9.1 mg/dL (8.3-10.6); Calcium (Corrected) 9.4 mg/dL (8.5-10.1); Carbon Dioxide 22.9 mMol/L (20.0-31.0); Chloride 110 mMol/L (98-107); Estimated Creatinine Clearance 62.1 mL/min (>60); Glucose 125 mg/dL (74-106); Magnesium 1.8 mg/dL (1.6-2.6); Osmolality,Calculated 292 (275-295); Phosphorous 2.6 mg/dL (2.4-5.1); Potassium 4.6 mMol/L (3.4-5.1); Sodium 142 mMol/L (136-145); eGFR > 60 See Note
[2024-05-22] MEDS: GABAPENTIN 300 MG CAPSULE PO ×2 (08:28→21:25)
[2024-05-22] MEDS: ATORVASTATIN CALCIUM 10 MG TABLET PO (08:28)
[2024-05-22] MEDS: Magnesium Sulfate 4 GM Ivpb 4 GM/50 ML BAG IV (08:30)
[2024-05-22] MEDS: HEPARIN SOD INJ 5000 UNIT/ML VIAL SC ×2 (08:30→21:26)
[2024-05-22] MEDS: INSULIN LISPRO (AdmeLOG) 1 UNIT/0.01 ML UNIT SC ×2 (11:00→17:02)
--- NOTE | 2024-05-22 11:40 | ESPR_ITS ---
<Statement entered by Jesus Mancuso MD - 05/22/24 16:36> I discussed with and supervised the biomedical engineering internship physician involved in the care of this patient. Patient assessment and plan was discussed with entire medicine team, including my attending. I agree with the assessment and plan as documented by biomedical engineering internship doctor. Patient care was discussed with my attending physician Dr. Reed Mancuso, PGY-2 Documentation for date of: 05/22/24 Subjective Subjective Interval history: 05/22/2024: Patient was overnight admission; was downgraded from the ICU for DKA after anion gap was closed several times. This morning, patient seen and examined remains mostly asymptomatic other than reporting some lower extremity pain. No concerning symptoms noted and the patient otherwise had a benign physical exam. We will calculate the patient's total insulin needs overnight and anticipate discharged with basal/bolus insulin and have her follow-up with her electronic game developer from [facility]. Exam Vital Signs Temp Pulse Resp BP Pulse Ox O2 Del Method 97.8 F 91 16 131/84 H 94 L Room Air 05/22/24 08:00 05/22/24 08:00 05/22/24 08:00 05/22/24 08:00 05/22/24 08:00 05/22/24 08:00 Narrative Exam Physical Exam General: Awake and in no acute distress. Conversational and non-toxic appearing. HEENT: Normocephalic, atraumatic, mucous membranes moist. Reports blurry vision, vision grossly intact. Heart: Regular rate and rhythm, no murmurs. Lungs: Clear to auscultation with no wheezing or crackles. Abdomen: Soft, nondistended, nontender, positive bowel sounds. ?No guarding or rebound tenderness. Neurologic: Alert and oriented x3, no gross neurological deficit, and patient able to move all 4 extremities. Extremities: No edema. Skin: No rash or ecchymoses. Objective Labs 05/23/24 04:22 05/23/24 04:22 Labs: Laboratory Results - last 24 hr 05/21/24 05/21/24 05/21/24 11:55 12:04 13:00 WBC 14.7 H RBC 4.66 Hgb 12.9 Hct 40.3 MCV 87 MCH 27.7 MCHC 32.0 RDW Std Deviation 40.3 Plt Count 311 Neut % (Auto) 94 H Lymph % (Auto) 5 L Jennings % (Auto) 1 Eos % (Auto) 0 Baso % (Auto) 0 Neut # (Auto) 13.8 H Lymph # (Auto) 0.7 L Jennings # (Auto) 0.1 Eos # (Auto) 0.0 Baso # (Auto) 0.0 Immature Gran # (Auto) 0.09 H Absolute Nucleated RBC 0.00 Immature Gran % 1 H Nucleated RBC % 0 PT 11.1 INR 1.0 APTT 26.5 Puncture Site Right Radial ABG pH 7.12 L* ABG pCO2 29 L ABG pO2 94 ABG HCO3 9 L* ABG O2 Saturation 96 ABG Base Excess -19 L Oxygen Liter Flow FiO2 21 Sodium 129 L Potassium 5.6 H Chloride 94 L Carbon Dioxide < 10.0 L* Anion Gap 25 H BUN 33 H Creatinine 1.5 H Estim Creat Clear Calc 41.4 L eGFR 42 L BUN/Creatinine Ratio 22 H Glucose 658 H* Estimated Ave Glu mg/dL Hemoglobin A1c Calculated Osmolality 297 H Lactic Acid Calcium 10.0 Corrected Calcium 10.0 Phosphorus Magnesium 2.2 Total Bilirubin 0.5 AST 13 ALT 23 Alkaline Phosphatase 122 H Lactate Dehydrogenase 251 H Troponin I < 0.020 < 0.020 B-Natriuretic Peptide 97 Total Protein 7.5 Albumin 4.6 Globulin 2.9 Albumin/Globulin Ratio 1.6 Lipase 20 Beta-Hydroxybutyrate/Acetoacetate 4.9 H Ur Collection Type Urine Color Urine Clarity Urine pH Ur Specific [place] Urine Protein Urine Glucose (UA) Urine Ketones Urine Blood Urine Nitrite Urine Bilirubin Urine Urobilinogen (Auto) Ur Leukocyte Esterase Urine RBC Urine WBC Ur Squamous Epith Cells Urine Bacteria Urine Yeast (Budding) Urine Opiates Screen Urine Fentanyl Screen Ur Barbiturates Screen U Amphetamin/Meth Scrn U Benzodiazepines Scrn U Cocaine Metab Screen U Marijuana (THC) Screen 05/21/24 05/21/24 05/21/24 14:12 14:14 16:12 WBC RBC Hgb Hct MCV MCH MCHC RDW Std Deviation Plt Count Neut % (Auto) Lymph % (Auto) Jennings % (Auto) Eos % (Auto) Baso % (Auto) Neut # (Auto) Lymph # (Auto) Jennings # (Auto) Eos # (Auto) Baso # (Auto) Immature Gran # (Auto) Absolute Nucleated RBC Immature Gran % Nucleated RBC % PT INR APTT Puncture Site Left Radial ABG pH 7.09 L* ABG pCO2 25 L ABG pO2 92 ABG HCO3 8 L* ABG O2 Saturation 95 ABG Base Excess -21 L Oxygen Liter Flow FiO2 21 Sodium 136 Potassium 4.5 D Chloride 103 Carbon Dioxide 11.8 L* Anion Gap 21 H BUN 36 H Creatinine 1.3 Estim Creat Clear Calc 47.8 L eGFR 50 L BUN/Creatinine Ratio 28 H Glucose 449 H* D Estimated Ave Glu mg/dL 166 H Hemoglobin A1c 7.4 H Calculated Osmolality 299 H Lactic Acid 3.6 H 2.8 H Calcium 8.8 Corrected Calcium 8.9 Phosphorus 4.4 Magnesium 1.8 Total Bilirubin AST ALT Alkaline Phosphatase Lactate Dehydrogenase Troponin I B-Natriuretic Peptide Total Protein Albumin 3.9 D Globulin Albumin/Globulin Ratio Lipase Beta-Hydroxybutyrate/Acetoacetate Ur Collection Type Urine Color Urine Clarity Urine pH Ur Specific [place] Urine Protein Urine Glucose (UA) Urine Ketones Urine Blood Urine Nitrite Urine Bilirubin Urine Urobilinogen (Auto) Ur Leukocyte Esterase Urine RBC Urine WBC Ur Squamous Epith Cells Urine Bacteria Urine Yeast (Budding) Urine Opiates Screen Urine Fentanyl Screen Ur Barbiturates Screen U Amphetamin/Meth Scrn U Benzodiazepines Scrn U Cocaine Metab Screen U Marijuana (THC) Screen 05/21/24 05/21/24 05/21/24 16:21 18:51 21:03 WBC RBC Hgb Hct MCV MCH MCHC RDW Std Deviation Plt Count Neut % (Auto) Lymph % (Auto) Jennings % (Auto) Eos % (Auto) Baso % (Auto) Neut # (Auto) Lymph # (Auto) Jennings # (Auto) Eos # (Auto) Baso # (Auto) Immature Gran # (Auto) Absolute Nucleated RBC Immature Gran % Nucleated RBC % PT INR APTT Puncture Site Right Radial ABG pH 7.22 L D ABG pCO2 29 L ABG pO2 80 L ABG HCO3 12 L ABG O2 Saturation 96 ABG Base Excess -15 L Oxygen Liter Flow FiO2 21 Sodium 142 Potassium 4.8 Chloride 110 H Carbon Dioxide 21.8 Anion Gap 10 BUN 37 H Creatinine 1.2 Estim Creat Clear Calc 51.7 L eGFR 55 L BUN/Creatinine Ratio 31 H Glucose [address] Glu mg/dL Hemoglobin A1c Calculated Osmolality 296 H Lactic Acid 1.5 Calcium 9.5 Corrected Calcium 9.5 Phosphorus 2.9 Magnesium 1.8 Total Bilirubin AST ALT Alkaline Phosphatase Lactate Dehydrogenase Troponin I B-Natriuretic Peptide Total Protein Albumin 4.1 Globulin Albumin/Globulin Ratio Lipase Beta-Hydroxybutyrate/Acetoacetate Ur Collection Type Clean Catch Urine Color Red A Urine Clarity Turbid A Urine pH 6.0 Ur Specific [place] 1.014 Urine Protein 2+ A Urine Glucose (UA) Negative Urine Ketones 1+ A Urine Blood 3+ A Urine Nitrite Negative Urine Bilirubin Negative Urine Urobilinogen (Auto) Negative Ur Leukocyte Esterase Positive Urine RBC 7092 H Urine WBC 863 H Ur Squamous Epith Cells 0 Urine Bacteria None Urine Yeast (Budding) Present A Urine Opiates Screen Negative Urine Fentanyl Screen Negative Ur Barbiturates Screen Negative U Amphetamin/Meth Scrn Negative U Benzodiazepines Scrn Negative U Cocaine Metab Screen Negative U Marijuana (THC) Screen Negative 05/21/24 05/22/24 05/22/24 21:09 00:25 01:04 WBC RBC Hgb Hct MCV MCH MCHC RDW Std Deviation Plt Count Neut % (Auto) Lymph % (Auto) Jennings % (Auto) Eos % (Auto) Baso % (Auto) Neut # (Auto) Lymph # (Auto) Jennings # (Auto) Eos # (Auto) Baso # (Auto) Immature Gran # (Auto) Absolute Nucleated RBC Immature Gran % Nucleated RBC % PT INR APTT Puncture Site Right Radial Right Radial ABG pH 7.39 D 7.39 ABG pCO2 34 38 ABG pO2 92 70 L D ABG HCO3 21 23 ABG O2 Saturation 99 H 96 ABG Base Excess -4 L -2 Oxygen Liter Flow 4 FiO2 21 21 Sodium 143 Potassium 4.5 Chloride 112 H Carbon Dioxide 23.4 Anion Gap 8 BUN 36 H Creatinine 1.1 Estim Creat Clear Calc 56.4 L eGFR > 60 BUN/Creatinine Ratio 33 H Glucose [address] Glu mg/dL Hemoglobin A1c Calculated Osmolality 297 H Lactic Acid 1.5 Calcium 9.1 Corrected Calcium 9.3 Phosphorus 2.4 Magnesium 1.7 Total Bilirubin AST ALT Alkaline Phosphatase Lactate Dehydrogenase Troponin I B-Natriuretic Peptide Total Protein Albumin 3.8 Globulin Albumin/Globulin Ratio Lipase Beta-Hydroxybutyrate/Acetoacetate Ur Collection Type Urine Color Urine Clarity Urine pH Ur Specific [place] Urine Protein Urine Glucose (UA) Urine Ketones Urine Blood Urine Nitrite Urine Bilirubin Urine Urobilinogen (Auto) Ur Leukocyte Esterase Urine RBC Urine WBC Ur Squamous Epith Cells Urine Bacteria Urine Yeast (Budding) Urine Opiates Screen Urine Fentanyl Screen Ur Barbiturates Screen U Amphetamin/Meth Scrn U Benzodiazepines Scrn U Cocaine Metab Screen U Marijuana (THC) Screen 05/22/24 04:26 WBC 16.6 H RBC 3.90 L Hgb 10.8 L D Hct 32.3 L MCV 83 MCH 27.7 MCHC 33.4 RDW Std Deviation 39.1 Plt Count 230 D Neut % (Auto) 78 Lymph % (Auto) 12 Jennings % (Auto) 9 Eos % (Auto) 0 Baso % (Auto) 0 Neut # (Auto) 13.0 H Lymph # (Auto) 2.1 Jennings # (Auto) 1.4 H Eos # (Auto) 0.0 Baso # (Auto) 0.0 Immature Gran # (Auto) 0.07 H Absolute Nucleated RBC 0.00 Immature Gran % 0 Nucleated RBC % 0 PT INR APTT Puncture Site ABG pH ABG pCO2 ABG pO2 ABG HCO3 ABG O2 Saturation ABG Base Excess Oxygen Liter Flow FiO2 Sodium 142 Potassium 4.6 Chloride 110 H Carbon Dioxide 22.9 Anion Gap 9 BUN 35 H Creatinine 1.0 Estim Creat Clear Calc 62.1 eGFR > 60 BUN/Creatinine Ratio 35 H Glucose [address] Glu mg/dL Hemoglobin A1c Calculated Osmolality 292 Lactic Acid Calcium 9.1 Corrected Calcium 9.4 Phosphorus 2.6 Magnesium 1.8 Total Bilirubin AST ALT Alkaline Phosphatase Lactate Dehydrogenase Troponin I B-Natriuretic Peptide Total Protein Albumin 3.6 Globulin Albumin/Globulin Ratio Lipase Beta-Hydroxybutyrate/Acetoacetate 0.2 Ur Collection Type Urine Color Urine Clarity Urine pH Ur Specific [place] Urine Protein Urine Glucose (UA) Urine Ketones Urine Blood Urine Nitrite Urine Bilirubin Urine Urobilinogen (Auto) Ur Leukocyte Esterase Urine RBC Urine WBC Ur Squamous Epith Cells Urine Bacteria Urine Yeast (Budding) Urine Opiates Screen Urine Fentanyl Screen Ur Barbiturates Screen U Amphetamin/Meth Scrn U Benzodiazepines Scrn U Cocaine Metab Screen U Marijuana (THC) Screen ABG Interpretation ABG results: 05/21/24 05/21/24 05/21/24 12:04 14:12 16:21 ABG pH 7.12 L* 7.09 L* 7.22 L D ABG pCO2 29 L 25 L 29 L ABG pO2 94 92 80 L ABG HCO3 9 L* 8 L* 12 L ABG O2 Saturation 96 95 96 ABG Base Excess -19 L -21 L -15 L 05/21/24 05/22/24 21:09 00:25 ABG pH 7.39 D 7.39 ABG pCO2 34 38 ABG pO2 92 70 L D ABG HCO3 21 23 ABG O2 Saturation 99 H 96 ABG Base Excess -4 L -2 Quality Measures Quality Measures VTE prophylaxis Assessment & Plan Assessment Current Active Medications: Generic Name Dose Route Start Last Admin Trade Name Freq PRN Reason Stop Dose Admin Acetaminophen 650 mg 05/21/24 13:25 Acetaminophen 325 Mg Tablet PO 06/20/24 13:24 Q4HR PRN Pain 1-3 and Fever Atorvastatin Calcium 10 mg 05/22/24 09:00 05/22/24 08:28 Atorvastatin Calcium 10 Mg Tablet PO 06/21/24 08:59 10 mg QDAY OBEY Administration Dextrose 25 ml 05/22/24 04:21 Dextrose 50%-Water Inj 50 Ml Syringe IV 06/21/24 04:20 Q15MIN PRN BG 50-70 responsive npo pt Dextrose 50 ml 05/22/24 04:21 Dextrose 50%-Water Inj 50 Ml Syringe IV 06/21/24 04:20 Q15MIN PRN BG <50 OR BG <70 & pt unresponsive Gabapentin 300 mg 05/22/24 09:00 05/22/24 08:28 Gabapentin 300 Mg Capsule PO 06/21/24 08:59 300 mg BID OBEY Administration Glucagon 1 mg 05/22/24 04:21 Glucagon Inj 1 Mg Vial IM Q15MIN PRN BG <70, and no IV access Heparin Sodium (Porcine) 5,000 unit 05/21/24 21:00 05/22/24 08:30 Heparin Sod Inj 5000 Unit/Ml Vial SC 06/04/24 20:59 5,000 unit Q12HR OBEY Administration Insulin Glargine 20 unit 05/22/24 02:15 05/22/24 03:03 Insulin Glargine (Lantus) 5 Unit/0.05 Ml (Per 5 Units) SC 06/21/24 02:14 20 unit HS OBEY Administration Insulin Human Lispro 0 unit 05/22/24 07:30 05/22/24 11:00 Insulin Lispro (Admelog) 1 Unit/0.01 Ml Unit SC 06/21/24 07:29 5 unit AC OBEY Administration Protocol Plan 53-year-old female with past medical history of hypertension and hyperlipidemia who was admitted to [facility] on 05/21/2024 for diabetic ketoacidosis. Patient's daughter assisting patient with insulin pump, unable to use insulin pump correctly leading to DKA. Patient's anion gap closed twice, was transition from insulin GTT to subcutaneous insulin and downgraded to hospitalist service for further management. #Type 2 diabetes mellitus, insulin-dependent, hemoglobin A1c 7.4 #High anion gap metabolic acidosis, resolved #Diabetic ketoacidosis, resolved #Diabetic neuropathy #Diabetic retinopathy Hemoglobin A1c 7.4 Patient was discharged from [facility] on insulin pump and CGM sometime in November 2023 Per patient's daughter on admission patient's CGM pump has been showing high readings, patient unable to use insulin pump correctly, leading to DKA Patient admitted to ICU for further management, started on insulin gtt, gap closed twice, patient transition to subcutaneous insulin. Patient started on 20 units Lantus daily and sliding scale insulin. Patient reports difficulty ambulating for about the last 6 years, positive history of diabetic neuropathy, on gabapentin at home. Patient reports blurry vision, did report having eye surgery for diabetes, follows ophthalmology outpatient. Plan: Will plan on discontinuing patient on basal/bolus insulin and have her follow-up with her electronic game developer Dr. Whiteside Lantus 20 units subcutaneous daily SSI - will calculate 24 hour need Continue home dose gabapentin Diabetic education #Acute kidney injury, resolving Patient's BUN 33, creatinine 1.5, GFR 42 on presentation. At baseline patient's BUN 13, creatinine 0.6, GFR more than 60 per chart review in 2022. Patient was given fluids per DKA protocol, improvement in renal panel noted Plan: Monitor with morning labs Renally dose medication Avoid nephrotoxic agents #Hyperlipidemia #Hypertension Patient on atorvastatin 10 mg p.o. daily for hyperlipidemia Patient not on any antihypertensive per med rec Plan: Monitor blood pressure; will consider starting DONALDO/ARB Resumed home atorvastatin Hospital Management: Diet: Carb consistent low Lines: PIV Bowel: Senna GI prophylaxis: Not indicated DVT prophylaxis: Heparin every 12 hours Dispo: Calculating total insulin need; will d/c with basal/bolus and refer to patient's electronic game developer. Code status: Full code Patient seen and assessed with attending Dr. Mcbride and senior resident Dr. Jamee Arzola, PGY-1 Attending Provider Attestation/Addendum I, Marisa Mcbride, DO, attest that I was physically present for the bowman portions of the service and evaluated the patient with the resident and I reviewed and discussed the case with the resident and agree with the resident's findings and plans of care as documented above Patient seen and evaluated this AM. Daughter at bedside. Patient uses an insulin pump that has been reading high the past few days. Patient has been downgraded from ICU for DKA. BG improved. Will uptitrate insulin dose as needed. Start with glargine [address] Patient sees Dr. Whiteside in [place]. Daughter suspects that the pump has not been working well, but changes it every 3 days. Anticipate DC in AM if BG better controlled, will send patient home with basal and bolus insulin doses as backup on discharge if insulin pump is malfunctioning.
--- NOTE | 2024-05-22 13:14 | PC.NURSE ---
Dr. Mancuso made aware that pt. has no voided, so RN did a bladder scan and scan shows retention of 685 cc. orders insert mercado catheter. No other orders received at this time.
--- NOTE | 2024-05-22 15:58 | PC.SS ---
SS met with patient regarding her d/c plan.? Pt is alert/oriented.? Pt was admitted for DKA.? Pt confirmed demographic and contact information is correct on facesheet.? Pt resides with and kids.? Pt ambulates using a 4 wheel with seat, rollator walker.? Pt is ok with all ADLs.? Pt named her dtr, Bharati Moy medical decision maker if she is unable.? Patient?s choice is to return home upon d/c.? Pt states she is diabetic, has glucometer, and test strips.? Pt states she takes oral medication and insulin injections for her diabetes.? SS received call from MAMIE Serrano who explained she is recommending pt follow up with Out Patient PT.? SS has informed pt and she is agreeable.? SS has provided pt with [facility] with Out Patient PT's information.? Pt states she last followed up with PCP in January,. D/C plan:? Return home Next of Kin:? Mau Moy, dtr, phone# [phone] PCP:? [facility] in [place] Address:? Correct on facesheet
[2024-05-23] VITALS (11 sets, daily range): BP systolic 110–171; BP diastolic 72–103; PULSE 82–97; RESP 15–97; TEMP 36.1–36.3; O2SAT 94–97; BMI 34.0
[2024-05-23 05:32] LABS: Basophils % (Auto) 0 % (0-2.5); Eosinophils # (Auto) 0.1 Thou/mm3 (0.0-0.5); Eosinophils % (Auto) 2 % (0-10); Hemoglobin 11.2 g/dL (12.0-16.0); Immature Granulocytes % (Auto) 0 % (0-0); Immature Granulocytes Auto 0.02 Thou/mm3 (0.00-0.00); Lymphocytes # (Auto) 2.3 Thou/mm3 (1.0-4.8); Lymphocytes % (Auto) 25 % (10-50); Mean Corpuscular HGB Conc 33.9 g/dl (31.0-37.0); Mean Corpuscular Hemoglobin 27.9 pg (25.0-35.0); Mean Corpuscular Volume 82 fL (80-100); Monocytes # (Auto) 0.6 Thou/mm3 (0.0-0.8); Monocytes % (Auto) 7 % (0-12); Neutrophils # (Auto) 6.2 Thou/mm3 (1.8-7.7); Neutrophils % (Auto) 67 % (37-80); Nucleated Red Blood Cell % 0 /100 WBC (0); Platelet Count 178 Thou/mm3 (140-440); RDW Standard Deviation 39.4 fL (36.4-46.3); Red Blood Count 4.01 Miln/mm3 (4.00-5.20); White Blood Count 9.3 Thou/mm3 (3.6-11.0)
[2024-05-23 06:43] LABS: Albumin, Serum 3.7 gm/dL (3.5-5.0); Anion Gap 9 (7-16); BUN/Creatinine Ratio 22 Ratio (12-20); Blood Urea Nitrogen 20 mg/dL (9-23); Calcium 9.4 mg/dL (8.3-10.6); Calcium (Corrected) 9.6 mg/dL (8.5-10.1); Chloride 101 mMol/L (98-107); Creatinine (Component) 0.9 mg/dL (0.6-1.3); Estimated Creatinine Clearance 74.6 mL/min (>60); Glucose 336 mg/dL (74-106); Magnesium 2.2 mg/dL (1.6-2.6); Osmolality,Calculated 285 (275-295); Phosphorous 2.4 mg/dL (2.4-5.1); Potassium 4.5 mMol/L (3.4-5.1); Sodium 135 mMol/L (136-145); eGFR > 60 See Note
[2024-05-23] MEDS: ATORVASTATIN CALCIUM 10 MG TABLET PO (08:26)
[2024-05-23] MEDS: GABAPENTIN 300 MG CAPSULE PO (08:26)
[2024-05-23] MEDS: INSULIN LISPRO (AdmeLOG) 1 UNIT/0.01 ML UNIT SC ×2 (08:27→11:34)
[2024-05-23] MEDS: HEPARIN SOD INJ 5000 UNIT/ML VIAL SC (08:28)
[2024-05-23] MEDS: Lisinopril 2.5 MG TABLET 5 MG PO (11:34)
[2024-05-23] MEDS: INSULIN LISPRO (AdmeLOG) 1 UNIT/0.01 ML UNIT 10 UNIT SC (11:35)
--- NOTE | 2024-05-23 11:47 | PC.SS ---
SS has faxed referral to the Out Patient PT.
--- NOTE | 2024-05-23 13:42 | ESDS_ITS ---
<Statement entered by Jesus Mancuso MD - 05/24/24 07:37> I discussed with and supervised the campus recruiting internship physician involved in the care of this patient. Patient assessment and plan was discussed with entire medicine team, including my attending. I agree with the assessment and plan as documented by campus recruiting internship doctor. Patient care was discussed with my attending physician Dr. Reed Mancuso, PGY-2 Planned Discharge Date 05/23/24 DS: Providers Provider Date of admission: 05/21/24 13:25 Primary care physician: Physician No Primary/Family Admitting Provider: Enma Cary MD Attending Provider on Admission: Marisa Mcbride DO Consults: 05/21/24 13:31 Referral Registered Dietitian Routine Comment: 05/22/24 04:24 Referral Physical Therapy Routine Comment: Physician Instructions: 05/22/24 07:29 Referral Registered Dietitian Routine Comment: Attending Provider on DC: Marisa Mcbride DO Discharging Provider: Naveed Guy MD DS: Diagnosis Problem List Completed Was Problem List Reviewed/Reconciled?: Yes Hospital Course Hospital Course Hospital course: 53-year-old female with past medical history of hypertension and hyperlipidemia who was admitted to [facility] on 05/21/2024 for diabetic ketoacidosis. Patient's daughter assisting patient with insulin pump, unable to use insulin pump correctly leading to DKA. Patient's anion gap closed twice, was transition from insulin GTT to subcutaneous insulin and downgraded to hospitalist service for further management. With regards to patient's DKA, initially she was managed in the ICU with insulin infusion on 05/21 and downgraded to the floor on 05/22. She was transitioned to subcutaneous insulin 30 units SC at bedtime and lispro 10 units SC 3 times daily with meals. Patient's acute kidney injury, she was treated with IV fluids and creatinine improved from 1.5 on admission to 0.9. All patient's labs are now returning to baseline. Patient is now clinically stable and fit for discharge to home. Discharge diagnoses: 1. Diabetic ketoacidosis?resolved 2. Insulin-dependent diabetes mellitus type 2 [7.4%] 3. Diabetic nephropathy 4. Diabetic retinopathy 5. Acute kidney injury?resolved 6. Hyperlipidemia 7. Primary hypertension Discharge plan: ? Upon discharge please resume using your insulin pump. ? If you decide not to use your insulin pump, years insulin glargine 30 units SC at bedtime and insulin lispro 10 units 3 times daily with meals. ? Please follow-up with your shot blaster within 1 week of discharge - Follow up with your primary care physician within 1 week of discharge. If you do not have a primary care physician, please follow up with the [facility] Residents juan luis mcbride ([phone]) ? If you experience any new, worsening or persistent symptoms either call your primary doctor, or dial 911 or present to the emergency department. We are grateful to be able to participate in Mrs. Raines's care. We wish her the best. Plan of care discussed with Attending Dr. Mcbride and PGY2 Dr. Jamee Guy MD PGY 1 Time Spent with Patient Time attestation: Total time spent providing and/or coordinating discharge services: Time spent: Greater than 30 minutes (36) Exam Vital Signs Temp Pulse Resp BP Pulse Ox O2 Del Method 97.1 F 82 20 151/99 H 96 Room Air 05/23/24 12:00 05/23/24 12:00 05/23/24 12:00 05/23/24 12:00 05/23/24 12:05/23/24 12:00 Narrative Exam Constitutional Alert, oriented x 3 and comfortable. Middle aged Female, Obese HEENT Vision grossly intact. Patent nares. Trachea midline Respiratory Chest normal on inspection and clear auscultation bilaterally Cardiovascular S1 and S2 audible, RRR. No murmurs carotid bruit. No gross JVD. Abdominal Soft, obese and non tender to palpation in all quadrants. BS + Genitourinary No bladder tenderness, no flank pain. Normal to palpation Musculoskeletal Extremities tone within normal limits. No LE edema. Neurological CN II - XII grossly intact. Extremity motor and sensation grossly intact. Skin Warm, dry and intact. No apparent lesions. Psychiatric Patient has good affect, is cooperative Discharge Plan Plan Patient Disposition: HOME (Self Care) Patient condition on transfer: Stable Prescriptions/Referrals Prescriptions/Med Rec: New insulin glargine U-300 conc [Toujeo Max U-300 SoloStar] 300 unit/mL (3 mL) insulin pen 30 unit subcut HS Qty: 6 0RF insulin lispro [Admelog SoloStar U-100 Insulin] 100 unit/mL insulin pen 10 unit subcut TID Qty: 15 0RF lisinopril 2.5 mg Tablet 5 mg PO QDAY 30 Days Qty: 60 0RF Myxredlin 100 unit/100 mL (1 unit/mL) Solution 100 unit IV .[id number] PRN (Reason: Per Protocol) 1 Days Qty: 1 0RF lidocaine 5 % adhesive patch,medicated 1 patch topical QDAY PRN (Reason: pain ) Qty: 30 0RF Rx Instructions: leave on most painful area for up to 12 hrs Continued atorvastatin 10 mg Tablet 10 mg PO QDAY ferrous sulfate [iron] 325 mg (65 mg iron) Tablet 325 mg PO HS metformin 1,000 mg Tablet 1,000 mg PO BID gabapentin 300 mg capsule 300 mg PO BID Patient Comments: take 1 capsule by mouth twice a day (DME) Omnipod 5 G6-G7 Pods (Gen 5) Cartridge SUBCUT Patient Comments: CHANGE POD EVERY 72 HOURS Discontinued insulin glargine [Lantus Solostar U-100 Insulin] 100 unit/mL (3 mL) Insulin Pen 30 unit SUBCUT HS Qty: 3 0RF Referrals: No Primary/Family,Physician [Primary Care Provider] - Patient/Caregiver Discharge Instructions Meds to Beds: No Discharge Activity: activity as tolerated and resume usual activities Other Discharge Activity Instructions:: Please follow up with primary physician within 1 week of discharge. If insulin pump continues to malfunction, please discontinue use. Instead, use glargine 30 units before bed and lispro 10 units three times a day with meals. Please follow with shot blaster. Jody maria eugenia robert con reddy m?dico de cabecera dentro de la semana posterior al deb. Si la bomba de insulina contin?a funcionando mal, suspenda reddy uso. En reddy lugar, utilice 30 unidades de glargina antes de acostarse y 10 unidades de lispro yandy veces al d?a con las comidas. Por favor siga con el endocrin?logo. Education Materials: Diabetic Ketoacidosis Print Language: Malawian Stand Alone Forms: Michelle Award Info., Patient Portal Info Letter Discharge Order Discharge Orders: Discharge (Routine); Ordered 05/23/24 Ordered By: Marisa Mcbride Quality Discharge Quality Measures VTE prophylaxis
--- NOTE | 2024-05-23 15:46 | PC.NURSE ---
Called DR Guy and made aware of BP 180/107 HR 97, patient denies any symptoms or discomfort. DR stated he will come assess the patient
--- NOTE | 2024-05-23 15:48 | PC.NURSE ---
Discharge instructions given to patient's daughter/ care provider, she is fluent in Latvian and Iraqi.
[2024-05-23] MEDS: hydrALAZINE INJ 20 MG/ML VIAL 10 MG IV (16:07)
== END 2024-05-23 16:50 | disposition home or self-care (01) | DRG 420 ==
LOC: SERX 13:08 → SERHOLD 05-22 06:18 → S2SX 05-22 06:18 → S2NX 05-22 06:19 → S3NX 05-22 15:41
PROVIDERS: Registered Nurse General Practice; Admitting Provider Internal Medicine; Emergency Provider Emergency Medicine; Visit Provider Internal Medicine
DX: E11.10 Type 2 diabetes mellitus with ketoacidosis without coma (principal); E78.5 Hyperlipidemia, unspecified; I10 Essential (primary) hypertension; N17.9 Acute kidney failure, unspecified; E87.5 Hyperkalemia; D72.829 Elevated white blood cell count, unspecified; E11.21 Type 2 diabetes mellitus with diabetic nephropathy; E11.40 Type 2 diabetes mellitus with diabetic neuropathy, unspecified; E11.319 Type 2 diabetes mellitus with unspecified diabetic retinopathy without macular edema; H53.8 Other visual disturbances; Z96.41 Presence of insulin pump (external) (internal); Z79.899 Other long term (current) drug therapy; Z79.84 Long term (current) use of oral hypoglycemic drugs
CPT/HCPCS: 36415; 36600; 71045; 80053; 80069; 80307; 81001; 82010; 82803; 83036; 83605; 83615; 83690; 83735; 83880; 84100; 84484; 85025; 85610; 85730; 87081; 87811; 93225; 97162; J0360; J1643; J1815; J2405; J2470; J3475; J3480; J7030; J7120; Z7610; A9270

== ENCOUNTER 2024-10-07 10:23 | Outpatient (RCR) | payer MEDICAID, SELFPAY ==
--- NOTE | 2024-10-07 10:44 | PTNOTE_ITS ---
PT OP Initial Eval Patient Information Outpatient Physical Therapy Treatment Date: 10/07/24 Visit Reasons: Leg weakness Medical Diagnosis: R29.898 Treatment Dx #1: LBP Treatment Dx #2: B LE pain Start of Care: 10/07/24 Date of Onset: 6 yrs ago Smoking Status Smoking Status: Never smoker Initial Assessment Subjective: Pt is 54 yr old danish speaking female who reports she hasn't been able to walk for 6 yrs due to B LE weakness and numbness and pain. She says there is pain of the entire spine. She stands and ambulates with FWW HH distances and then the back and LE's hurt. PMH: HTN, DM, high cholesterol, DKA Imaging: MRI of L/S L5-S1 5 mm central lumbar disc bulge contiguous with both S1 nerve roots,?? extending to the left neural foramen, mild left L5 ganglionic impression , L4-L5 3 mm central lumbar disc bulge? Pt goal: to walk further with less LE pain Objective: B LE strength: Quads: 3/5 HS: 3+/5 Ankle DF: 4-/5 Gait: slow, antalgic, decreased step length x30' Transfers: minAx1 sit to stand with FWW 30 sec chair to stand: 3 Assessment: Pt presents with high pain level of B posterior thighs and lumbar spine that limit transfers and standing tolerance consistent with B LE diabetic neuropathy and lumbar DDD and radiculopathy. She may benefit from skilled therapy to see if the LBP and B LE pain will decrease with prone lumbar extension which was what she was given as HEP printout. If not, PT recommends orthopedic evaluation. Short Term and [employer] Goals 1. Ind with HEP 2. Improved sit to stand tranfers with CGA and FWW 3. Decreased LBP and B LE pain with standing and ambulating by 50% 4. Improved ambulatory distance to at least 50' with FWW Treatment Plan ? 1. Manual therapy ? 2. Therex ? 3. Modalities as indicated, moist heat, ice, estim Frequency and Duration: 1-2x a week for 3-4 Rx trial sessions. If progressing with goals of less pain, continue to 12 sessions Certification Dates: 10/07/24 to 12/08/24 Procedure Charges OP PT Eval Mod Complex 30 minutes: Yes
== END 2024-10-31 23:59 | disposition home or self-care (01) ==
LOC: CPTX 10:23
PROVIDERS: PCP Psychiatry & Neurology Neurology; Referring Provider Psychiatry & Neurology Neurology; Visit Provider Psychiatry & Neurology Neurology
DX: M54.50 Low back pain, unspecified (principal); R53.1 Weakness; R20.0 Anesthesia of skin; R29.898 Other symptoms and signs involving the musculoskeletal system; I10 Essential (primary) hypertension; E11.9 Type 2 diabetes mellitus without complications; R26.2 Difficulty in walking, not elsewhere classified
CPT/HCPCS: 97162

== ENCOUNTER 2024-11-07 14:11 | Outpatient (RCR) | payer MEDICAID, SELFPAY ==
--- NOTE | 2024-11-07 18:37 | PT.ODAYNRPT ---
PT Outpatient Daily Note OP Daily Note Outpatient Physical Therapy Treatment Date: 11/07/24 Visit Reasons: Left leg weakness Subjective: Same as evaluation Objective: See F/S for therex Assessment: Pt transferred from sit to stand with SBA and ambulated in the parallel bars x4 laps with fair balance and then sat to rest. Plan: Continue per POC Length of Time (minutes) of Treatment: 30 Minutes Procedure Charges Therapeutic Exercise 30 minutes: Yes
--- NOTE | 2024-11-21 18:01 | PT.ODS1RPT ---
PT OP Progress/Discharge Note Date of Service: 11/21/24 Progress Note/DC Note Progress Note/Discharge Note: DC Note Patient Information Visit Reasons: Left leg weakness Service Continue Service or Discharge: Discharge Discharge Date: 11/21/24 Status Assessment: Pt attended the initial evaluation and 1 Rx visit and the no showed on 11/11 and 11/14 and never returned or called to schedule a follow-up appointment within the past 30 days, which is not in compliance with attendance policy. Pt?s attendance is not consistent enough to make progress with goals. Thank you for your referrals. Plan: D/C
== END 2024-12-01 23:59 | disposition home or self-care (01) ==
LOC: CPTX 14:11
PROVIDERS: PCP Psychiatry & Neurology Neurology; Referring Provider Psychiatry & Neurology Neurology; Visit Provider Psychiatry & Neurology Neurology
DX: M54.50 Low back pain, unspecified (principal); M79.652 Pain in left thigh; M79.651 Pain in right thigh; R20.0 Anesthesia of skin; R53.1 Weakness; R29.898 Other symptoms and signs involving the musculoskeletal system; I10 Essential (primary) hypertension; E11.9 Type 2 diabetes mellitus without complications
CPT/HCPCS: 97110